=== PATIENT | female | born 1980 | race Caucasian/White ===

== ENCOUNTER 2017-06-22 11:05 | Outpatient (CLI) | payer MEDICAID | END 2017-06-22 13:49 | disposition home or self-care (01) | LOC: OBT 11:05 → L-D 11:06 → OBT 13:49 | DX: O26.853 Spotting complicating pregnancy, third trimester (principal); O09.523 Supervision of elderly multigravida, third trimester; Z3A.39 39 weeks gestation of pregnancy | CPT/HCPCS: 76818 ==

== ENCOUNTER 2017-06-24 03:55 | Inpatient (IN) | payer MEDICAID ==
[2017-06-24] MEDS ORDERED: MISOPROSTOL 200 MCG TAB PR ×2 (05:00→18:30)
[2017-06-24] MEDS ORDERED: HYDROCODONE/APAP (5/325) TAB PO ×3 (05:00→18:30)
[2017-06-24] MEDS ORDERED: BUTORPHANOL 2 MG INJ IV (05:00)
[2017-06-24] MEDS ORDERED: OXYTOCIN 30 UNITS/LR 500 ML IV ×2 (05:00→18:30)
[2017-06-24] MEDS ORDERED: CARBOPROST 250 MCG INJ IM ×2 (05:00→18:30)
[2017-06-24] MEDS ORDERED: METHYLERGONOVINE 0.2 MG INJ IM ×2 (05:00→18:30)
[2017-06-24] MEDS: LACTATED RINGER'S 1,000 ML IV ×3 (05:19→13:15)
[2017-06-24 06:09] LABS: ADD MAN DIFF? NO
[2017-06-24 06:13] LABS: BASOPHIL # 0.1 10^3/ul (0.0-0.1); BASOPHILS % 0.4 % (0.0-2.0); EOSINOPHILS # 0.1 10^3/ul (0.0-0.5); EOSINOPHILS % 0.8 % (0.0-7.0); HEMATOCRIT 40.6 % (37.0-47.0); HEMOGLOBIN 14.1 g/dl (12.0-16.0); LYMPHOCYTES # 2.2 10^3/ul (0.8-2.9); LYMPHOCYTES % 16.6 % (15.0-51.0); MEAN CORPUSCULAR HEMOGLOBIN 29.7 pg (29.0-33.0); MEAN CORPUSCULAR HGB CONC 34.7 g/dl (32.0-37.0); MEAN CORPUSCULAR VOLUME 85.7 fl (82.0-101.0); MEAN PLATELET VOLUME 11.3 fl (7.4-10.4); MONOCYTE # 0.9 10^3/ul (0.3-0.9); MONOCYTES % 6.9 % (0.0-11.0); NEUTROPHIL # 9.8 10^3/ul (1.6-7.5); NEUTROPHILS % 73.6 % (39.0-77.0); PLATELET COUNT 236 10^3/UL (140-415); RED BLOOD COUNT 4.74 10^6/ul (4.20-5.40); RED CELL DISTRIBUTION WIDTH 14.2 % (11.5-14.5)
[2017-06-24 06:13] LABS: WHITE BLOOD COUNT 13.3 10^3/ul (4.8-10.8)
[2017-06-24 06:26] LABS: ADD UMIC YES; UR ASCORBIC ACID NEGATIVE (NEGATIVE); UR BILIRUBIN (Dip) NEGATIVE (NEGATIVE); UR BLOOD (Dip) 3+ mg/dL (NEGATIVE); UR CLARITY CLEAR (CLEAR); UR COLOR STRAW (YELLOW); UR GLUCOSE (Dip) NEGATIVE (NEGATIVE); UR KETONES (Dip) NEGATIVE (NEGATIVE); UR LEUKOCYTE ESTERASE (Dip) NEGATIVE Leu/ul (NEGATIVE); UR NITRITE (Dip) NEGATIVE (NEGATIVE); UR RBC 2 /HPF (0-5); UR SPECIFIC GRAVITY (Dip) 1.008 (1.003-1.030); UR TOTAL PROTEIN (Dip) NEGATIVE (NEGATIVE); UR UROBILINOGEN (Dip) NEGATIVE (NEGATIVE); UR WBC 1 /HPF (0-5)
[2017-06-24 06:36] LABS: ALANINE AMINOTRANSFERASE 32 IU/L (13-69); ALBUMIN 3.2 g/dl (3.3-4.9); ALKALINE PHOSPHATASE 338 IU/L (42-121); ANION GAP 14 (8-16); ASPARTATE AMINO TRANSFERASE 31 IU/L (15-46); BILIRUBIN,INDIRECT 0.3 mg/dl (0-1.1); BILIRUBIN,TOTAL 0.3 mg/dl (0.2-1.3); BLOOD UREA NITROGEN 7 mg/dl (7-20); CALCIUM 9.1 mg/dl (8.4-10.2); CARBON DIOXIDE 23 mmol/L (21-31); CHLORIDE 109 mmol/L (97-110); CREATININE 0.42 mg/dl (0.44-1.00); GLUCOSE 95 mg/dl (70-220); SODIUM 142 mmol/L (135-144); TOTAL PROTEIN 6.4 g/dl (6.1-8.1); URIC ACID 4.4 mg/dl (3.1-7.9)
[2017-06-24 06:41] LABS: PARTIAL THROMBOPLASTIN TIME 27.6 Sec (25.0-35.0); PROTIME 12.2 Sec (11.9-14.9)
[2017-06-24] MEDS ORDERED: FENTAnyl 2MCG/ML-ROPIV 0.2% 100 ML (06:45)
[2017-06-24] MEDS ORDERED: ONDANSETRON 4 MG INJ IV (07:00)
[2017-06-24] MEDS ORDERED: NALOXONE (0.4 MG/ML) INJ IV (07:00)
[2017-06-24] MEDS ORDERED: DIPHENHYDRAMINE 50 MG INJ IV (07:00)
[2017-06-24 07:05] LABS: HEPATITIS B SURFACE ANTIGEN NEGATIVE (NEGATIVE)
[2017-06-24] MEDS: FENTAnyl 2MCG/ML-ROPIV 0.2% 100 ML BAG EPI (12:57)
[2017-06-24] MEDS: OXYTOCIN 30 UNITS/LR 500 ML IV ×2 (14:58→14:59)
[2017-06-24] MEDS: LIDOCAINE 1% (MPF) 30 ML INJ INJ (14:59)
[2017-06-24] MEDS ORDERED: ZOLPIDEM 5 MG TAB PO (18:30)
[2017-06-24] MEDS: IBUPROFEN 600 MG TAB PO ×2 (18:49→23:40)
[2017-06-24] MEDS: LANOLIN 7 GM TUBE TOP (18:49)
[2017-06-24] MEDS: BENZOCAINE 20% 56 ML SPRAY TOP (18:50)
[2017-06-24] MEDS: DIBUCAINE 1% 30 GM OINT PR (18:50)
[2017-06-24] MEDS: WITCH HAZEL/GLYCERIN PAD PR (18:50)
[2017-06-24] MEDS: LACTATED RINGER'S 1,000 ML IV* (19:01)
[2017-06-24 20:07] LABS: RAPID PLASMA REAGIN NONREACTIVE (NR)
[2017-06-24] MEDS: MAGNESIUM HYDROXIDE 30ML CUP PO (21:24)
[2017-06-24] MEDS: SENNA/DOCUSATE NA (8.6MG/50MG) TAB PO (21:24)
[2017-06-24] MEDS: CEPHALEXIN 500 MG CAP PO (23:40)
[2017-06-25] MEDS: LACTATED RINGER'S 1,000 ML IV* ×3 (02:03→18:03)
[2017-06-25] MEDS: IBUPROFEN 600 MG TAB PO ×3 (05:49→17:59)
[2017-06-25] MEDS: CEPHALEXIN 500 MG CAP PO ×3 (05:49→17:59)
[2017-06-25] MEDS: MAGNESIUM HYDROXIDE 30ML CUP PO ×2 (09:15→22:23)
[2017-06-25] MEDS: SENNA/DOCUSATE NA (8.6MG/50MG) TAB PO ×2 (09:15→22:24)
[2017-06-25 10:01] LABS: ADD MAN DIFF? NO
[2017-06-25 10:03] LABS: WHITE BLOOD COUNT 19.1 10^3/ul (4.8-10.8)
[2017-06-25 10:03] LABS: BASOPHIL # 0.1 10^3/ul (0.0-0.1); BASOPHILS % 0.3 % (0.0-2.0); EOSINOPHILS # 0.1 10^3/ul (0.0-0.5); EOSINOPHILS % 0.5 % (0.0-7.0); HEMATOCRIT 31.8 % (37.0-47.0); HEMOGLOBIN 10.8 g/dl (12.0-16.0); LYMPHOCYTES # 2.4 10^3/ul (0.8-2.9); LYMPHOCYTES % 12.8 % (15.0-51.0); MEAN CORPUSCULAR HEMOGLOBIN 29.2 pg (29.0-33.0); MEAN CORPUSCULAR VOLUME 85.9 fl (82.0-101.0); MEAN PLATELET VOLUME 10.7 fl (7.4-10.4); MONOCYTE # 1.1 10^3/ul (0.3-0.9); MONOCYTES % 5.7 % (0.0-11.0); NEUTROPHIL # 15.2 10^3/ul (1.6-7.5); NEUTROPHILS % 79.4 % (39.0-77.0); PLATELET COUNT 191 10^3/UL (140-415); RED CELL DISTRIBUTION WIDTH 14.5 % (11.5-14.5)
[2017-06-26] MEDS: IBUPROFEN 600 MG TAB PO ×3 (00:25→12:00)
[2017-06-26] MEDS: CEPHALEXIN 500 MG CAP PO ×3 (00:25→12:41)
[2017-06-26] MEDS: LACTATED RINGER'S 1,000 ML IV* (02:03)
[2017-06-26] MEDS: SENNA/DOCUSATE NA (8.6MG/50MG) TAB PO (09:00)
[2017-06-26] MEDS: MEASLES,MUMPS,RUBELLA VACCINE INJ SC* (09:00)
[2017-06-26] MEDS: MAGNESIUM HYDROXIDE 30ML CUP PO (09:00)
[2017-06-26] MEDS: VARICELLA VACCINE LIVE/PF 1,350 UNIT/0.5 ML ML SC* (09:00)
[2017-06-26] MEDS: DIPHTH/TET/ACEL PERTUSS (ADULT) 0.5 ML VIAL IM* (09:00)
== END 2017-06-26 15:12 | disposition home or self-care (01) | DRG 775 ==
LOC: OBT 03:55 → L-D 03:56 → OBT 04:40 → L-D 04:40 → PP1 17:42
PROC: 10E0XZZ Delivery of Products of Conception, External Approach (ICD-10-PCS; principal; 2017-06-24)
PROC: 0HQ9XZZ Repair Perineum Skin, External Approach (ICD-10-PCS; 2017-06-24)
PROC: 3E033VJ Introduction of Other Hormone into Peripheral Vein, Percutaneous Approach (ICD-10-PCS; 2017-06-24)
DX: O69.81X0 Labor and delivery complicated by cord around neck, without compression, not applicable or unspecified (principal); O70.0 First degree perineal laceration during delivery; Z3A.39 39 weeks gestation of pregnancy; Z37.0 Single live birth
CPT/HCPCS: 62319; 80053; 81001; 84560; 85025; 85610; 85730; 86592; 86850; 86900; 86901; 87086; 87340; 99464